=== PATIENT | male | born 1960 | race Caucasian/White ===

== ENCOUNTER 2018-11-03 11:12 | Outpatient (CLI) | payer BC, SELFPAY ==
[2018-11-03 12:39] LABS: Cholesterol 241 mg/dL (50-200); Glucose 102 mg/dL (70-100); HDL Cholesterol 51 mg/dL (40-60); LDL CHOLESTEROL 170 mg/dL (<100); Triglyceride 78 mg/dL (30-150)
== END 2018-11-03 11:32 ==
PROVIDERS: PCP General Practice; Visit Provider General Practice
DX: Z00.00 Encounter for general adult medical examination without abnormal findings (principal); Z13.1 Encounter for screening for diabetes mellitus; Z13.220 Encounter for screening for lipoid disorders
CPT/HCPCS: 36415; 80061; 82947; 83721